=== PATIENT | female | born 1980 | race Native Hawaiian/Other Pacific Islander ===

== ENCOUNTER 2016-07-11 08:01 | Outpatient (CLI) | payer OTHER | END 2016-07-11 19:05 | disposition home or self-care (01) | LOC: MAMMO 08:01 | DX: Z12.31 Encounter for screening mammogram for malignant neoplasm of breast (principal) | CPT/HCPCS: G0202-TC ==

== ENCOUNTER 2017-01-11 13:58 | Outpatient (CLI) | payer OTHER | END 2017-01-11 15:00 | disposition home or self-care (01) | LOC: RAD 13:58 | DX: M25.562 Pain in left knee (principal) ==

== ENCOUNTER 2017-02-07 13:34 | Outpatient (CLI) | payer OTHER | END 2017-02-07 19:37 | disposition home or self-care (01) | LOC: RAD 13:34 | DX: M25.561 Pain in right knee (principal) ==

== ENCOUNTER 2017-04-06 07:46 | Outpatient (CLI) | payer OTHER | END 2017-04-06 21:48 | disposition home or self-care (01) | LOC: LABW 07:46 | DX: N92.0 Excessive and frequent menstruation with regular cycle (principal) | CPT/HCPCS: 36415; 82672; 83001; 83002; 84403 ==

== ENCOUNTER 2021-09-07 08:14 | Outpatient (CLI) | payer OTHER | END 2021-09-07 18:53 | disposition home or self-care (01) | LOC: LABW 08:14 | PROVIDERS: ATTEND Family Medicine | DX: R53.82 Chronic fatigue, unspecified (principal); Z13.220 Encounter for screening for lipoid disorders | CPT/HCPCS: 82533; 82670; 83001; 83002; 84402; 84403; 84481; 86376 ==

== ENCOUNTER 2021-09-14 08:11 | Outpatient (CLI) | payer OTHER | END 2021-09-14 18:56 | disposition home or self-care (01) | LOC: US 08:11 → MAMMO 08:11 → US 18:56 | PROVIDERS: ATTEND Family Medicine | DX: M67.442 Ganglion, left hand (principal) ==

== ENCOUNTER 2021-09-15 08:13 | Outpatient (CLI) | payer OTHER | END 2021-09-15 18:59 | disposition home or self-care (01) | LOC: MAMMO 08:13 | PROVIDERS: ATTEND Family Medicine | DX: Z12.31 Encounter for screening mammogram for malignant neoplasm of breast (principal); R00.2 Palpitations ==

== ENCOUNTER 2021-09-16 07:56 | Outpatient (CLI) | payer OTHER | END 2021-09-16 19:58 | disposition home or self-care (01) | LOC: RESP 07:56 | PROVIDERS: ATTEND Family Medicine | DX: Z12.31 Encounter for screening mammogram for malignant neoplasm of breast (principal); R00.2 Palpitations | CPT/HCPCS: 93225 ==